=== PATIENT | male | born 1965 | race Caucasian/White ===

== ENCOUNTER 2018-09-23 18:53 | Emergency (ER) | payer SELFPAY ==
[~2018-09-23] VITALS: Ht 190.5 cm; Wt 112.5 kg
[~2018-09-23 18:53] MED LIST: ETAN50DI2 IM; FLOVENT INH; FLUT50DI PO; FOLI0.8T2 PO; GABA300C10 PO; METH2.5T PO; NAPR-685 PO; NAPR-816 PO; OMEP-110 PO; PRED10TA PO; ROXICODONE PO; TRAM50TA2 PO
[2018-09-23] MEDS ORDERED: SODIUM CHLORIDE FLUSH 10ML SYR IVF ONE (19:00)
[2018-09-23 19:32] LABS: BASOPHILS # (AUTO) 0.02 x10^3/uL (0-0.1); BASOPHILS % (AUTO) 0 % (0-1); EOSINOPHILS # (AUTO) 0.18 x10^3/uL (0-0.4); EOSINOPHILS % (AUTO) 2 % (1-7); LYMPHOCYTES # (AUTO) 1.63 x10^3/uL (1-3.4); LYMPHOCYTES % (AUTO) 14 % (22-44); MD NO; MEAN CORPUSCULAR HEMOGLOBIN 31.6 pg (27.5-34.5); MEAN CORPUSCULAR HGB CONC 33.5 g/dL (33.2-36.2); MEAN CORPUSCULAR VOLUME 94.3 fL (81-97); MEAN PLATELET VOLUME 8.8 fL (7.4-10.4); MONOCYTES # (AUTO) 0.48 x10^3/uL (0.2-0.8); MONOCYTES % (AUTO) 4 % (2-9); NEUTROPHILS # (AUTO) 9.41 x10^3/uL (1.8-6.8); NEUTROPHILS % (AUTO) 80 % (42-75); PLATELET COUNT 185 x10^3/uL (130-400); RED BLOOD COUNT 5.52 x10^6/uL (4.38-5.82); RED CELL DISTRIBUTION WIDTH 13.8 % (9.4-14.8)
[2018-09-23 19:39] LABS: ALBUMIN 3.9 g/dL (3.4-5.0); ANION GAP 7 mmol/L (5-15); CALCIUM 8.9 mg/dL (8.5-10.1); CHLORIDE 108 mmol/L (98-107)
[2018-09-23 19:42] LABS: ALANINE AMINOTRANSFERASE 37 U/L (12-78); ALKALINE PHOSPHATASE 83 U/L (45-117); BILIRUBIN,TOTAL 1.2 mg/dL (0.2-1.0); CREATININE 1.55 mg/dL (0.7-1.3); TOTAL PROTEIN 7.6 g/dL (6.4-8.2)
[2018-09-23] MEDS ORDERED: ONDANSETRON 2MG/ML, 2ML IVPush ONE (20:00)
[2018-09-23] MEDS ORDERED: MORPHINE SULFATE 4 MG/ML, 1ML IVPush PRN (20:00)
[2018-09-23] MEDS ORDERED: ONDANSETRON 2MG/ML, 2ML ONE (20:03)
--- NOTE | 2018-09-23 20:03 | NUR ---
pt to ct
[2018-09-23] MEDS ORDERED: MORPHINE SULFATE 4 MG/ML, 1ML ONE (20:04)
--- NOTE | 2018-09-23 20:04 | NUR ---
STARTED 20G IV IN RIGHT AC FOR CT. SENT PT BACK TO ER WITH IV INTACT.
[2018-09-23] MEDS ORDERED: OMNIPAQUE 350 MG/ML, 100ML BOTTLE ONE (20:06)
[2018-09-23 20:10] LABS: MICROSCOPIC NOT IND
[2018-09-23 20:15] LABS: CULTURE INDICATED? NO
--- NOTE | 2018-09-23 20:19 | NUR ---
PT RETURNED FROM CT, IV IN PLACE. PT MEDICATED PER JUN. CALL LIGHT WITHIN REACH
[2018-09-23] MEDS ORDERED: metroNIDAZOLE 500 MG TABLET ONE (21:22)
[2018-09-23] MEDS ORDERED: CIPROFLOXACIN 500 MG TABLET ONE (21:22)
[2018-09-23 21:24] VITALS: BP 117/67
--- NOTE | 2018-09-23 21:25 | NUR ---
ed po challenge, pt tolerated well. no n/v
[2018-09-23] MEDS ORDERED: CIPROFLOXACIN 500 MG TABLET PO ONE (21:30)
[2018-09-23] MEDS ORDERED: metroNIDAZOLE 500 MG TABLET PO ONE (21:30)
== END 2018-09-23 22:03 | disposition home or self-care (01) ==
LOC: ED 20:45
DX: K57.32 Diverticulitis of large intestine without perforation or abscess without bleeding (principal); N17.9 Acute kidney failure, unspecified; I25.2 Old myocardial infarction; I25.10 Atherosclerotic heart disease of native coronary artery without angina pectoris; J45.909 Unspecified asthma, uncomplicated; K21.0 Gastro-esophageal reflux disease with esophagitis; Z90.49 Acquired absence of other specified parts of digestive tract; Z87.891 Personal history of nicotine dependence
CPT/HCPCS: 36415; 74177; 80053; 81003; 83690; 85025; 96374; 96375; 99284; J2270; J2405; Q9967

== ENCOUNTER 2020-12-07 03:07 | Emergency (ER) | payer MEDICAID ==
[~2020-12-07] VITALS: Ht 190.5 cm; Wt 111.2 kg
[~2020-12-07 03:07] MED LIST changes: -FOLI0.8T2 PO; +FOLI0.8T5 PO
--- NOTE | 2020-12-07 03:14 | NUR ---
PT BIBA FOR ETOH AND ABDOMINAL PAIN, PT AMBULATORY WITH STAND BY ASSISTANCE, PT REPORTS FEELING NAUSEATED AT THIS TIME. DIFFUSE ABDOMINAL DISCOMFORT WITH PALPATION. REFUSING TO ANSWER ALL QUESTIONS AND STATING "I DONT THINK I HAD THAT MUCH". PT DRY HEAVING IN ROOM, RESTING ON GURNEY, MONITORING IN PLACE, NAD, BED IN LOWEST, CALL LIGHT ON LAP, TM.
[2020-12-07] MEDS ORDERED: ONDANSETRON 2MG/ML, 2ML ONE (03:54)
[2020-12-07] MEDS ORDERED: ONDANSETRON 2MG/ML, 2ML IVPush ONE (04:00)
[2020-12-07] MEDS ORDERED: SODIUM CHLORIDE FLUSH 10ML SYR IVF ONE (04:00)
[2020-12-07] MEDS ORDERED: SODIUM CHLORIDE 0.9% 1,000ML IVBOLUS ONE (04:00)
[2020-12-07 04:13] LABS: BASOPHILS % (AUTO) 1 % (0-1); EOSINOPHILS % (AUTO) 2 % (1-7); LYMPHOCYTES % (AUTO) 15 % (22-44); MEAN CORPUSCULAR HEMOGLOBIN 31.7 pg (27.5-34.5); MEAN PLATELET VOLUME 8.4 fL (7.4-10.4); MONOCYTES % (AUTO) 5 % (2-9); NEUTROPHILS % (AUTO) 77 % (42-75); PLATELET COUNT 179 x10^3/uL (130-400); RED BLOOD COUNT 5.41 x10^6/uL (4.38-5.82); RED CELL DISTRIBUTION WIDTH 13.7 % (9.4-14.8)
--- NOTE | 2020-12-07 04:13 | NUR ---
PT LABS DRAWN AND SENT, RESTING ON GURNEY, NAD, BED IN LOWEST, RAILS ENGAGED, CALL LIGHT ON LAP, URINAL AT BS, EYES CLOSED, EVEN AND UNLABORED RESPIRATIONS AT THIS TIME. WCTM.
[2020-12-07] MEDS ORDERED: MAALOX/HYOSCYAMINE/LIDOCAINE 45 ML BTL PO ONE (04:30)
[2020-12-07 04:39] LABS: ALBUMIN 3.7 g/dL (3.4-5.0); ANION GAP 7 mmol/L (5-15); CALCIUM 8.5 mg/dL (8.5-10.1); CHLORIDE 109 mmol/L (98-107)
[2020-12-07 04:43] LABS: ALANINE AMINOTRANSFERASE 38 U/L (12-78); ALKALINE PHOSPHATASE 75 U/L (45-117); BILIRUBIN,TOTAL 0.5 mg/dL (0.2-1.0); CREATININE 1.33 mg/dL (0.7-1.3); TOTAL PROTEIN 7.5 g/dL (6.4-8.2)
[2020-12-07] MEDS ORDERED: MAALOX/HYOSCYAMINE/LIDOCAINE 45 ML BTL ONE (04:45)
[2020-12-07 04:58] LABS: MICROSCOPIC NOT IND
--- NOTE | 2020-12-07 05:48 | NUR ---
Patient is resting comfortably in bed. Bed in lowest, rails engaged, call light on lap. Vital Signs within normal limits. WCTM.
[2020-12-07 06:29] LABS: AMPHETAMINE SCREEN, URINE Positive (Negative); BARBITURATE SCREEN, URINE Negative (Negative); BENZODIAZEPINE SCREEN, URINE Negative (Negative); CANNABINOID SCREEN, URINE Negative (Negative); COCAINE SCREEN, URINE Negative (Negative); METHADONE SCREEN, URINE Negative (Negative); OPIATE SCREEN, URINE Negative (Negative)
[2020-12-07 06:36] VITALS: BP 120/77
--- NOTE | 2020-12-07 06:36 | NUR ---
PT EASILY ARROUSABLE TO VERBAL STIMULATION, ATTEMPTED TO AMBULATED PT, PT IS UNSTEADY WHILE STANDING AT EDGE OF BED AT THIS TIME. PT ASSISTED BACK TO [facility], BED IN LOWEST,RAILS ENGAGED, CALL LIGHT ON LAP. APPEARS COMFORTABLE, DENIES ADDITIONAL QUESTIONS OR NEEDS AT THIS TIME. WCTM.
--- NOTE | 2020-12-07 07:04 | NUR ---
Report from ORQUIDEA Mason. Pt is MTF, will feed this am and provide for safe dc to [facility].
--- NOTE | 2020-12-07 07:17 | NUR ---
Pt now with steady gait, able to navigate community and its resources safely. VSS. Drinking water and crackers. Provided bus pass and info from [facility] where his car is located. Rx and dc safely.
== END 2020-12-07 07:22 | disposition home or self-care (01) ==
LOC: ED 07:16
DX: F10.229 Alcohol dependence with intoxication, unspecified (principal); R10.84 Generalized abdominal pain; Z72.9 Problem related to lifestyle, unspecified; Y90.9 Presence of alcohol in blood, level not specified; F17.210 Nicotine dependence, cigarettes, uncomplicated
CPT/HCPCS: 36415; 80053; 80307; 80320; 81003; 83690; 85025; 96361; 96374; 99285; 99406; J2405; J7030; G0480